=== PATIENT | male | born 1990 | race Caucasian/White ===

== ENCOUNTER 2016-10-23 11:00 | Emergency (ER) | payer OTHER ==
[~2016-10-23] VITALS: Ht 177.8 cm; Wt 72.6 kg
[~2016-10-23 11:00] MED LIST: NAPROSYN500 M1 PO
[2016-10-23 11:09] VITALS: BP 123/72
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
--- NOTE | 2016-10-23 12:42 | CT SCAN REPORT ---
EXAMINATION: CT HEAD WITHOUT CONTRAST CLINICAL INFORMATION: Trauma. Head injury. COMPARISON: CT brain 09/01/2012. TECHNIQUE: Contiguous axial imaging was performed from the skull base to vertex without intravenous administration of contrast. DLP: 600 mGy-cm FINDINGS: There is no evidence of acute intracranial hemorrhage or territorial infarction. No abnormal mass effect or midline shift is seen. [place] to white matter differentiation is well preserved. No extra-axial fluid collections are identified. The ventricles are normal in size. There is no abnormal attenuation within the brain parenchyma. The osseous structures and soft tissues are normal. The mastoid air cells and visualized portions of the paranasal sinuses are well aerated. IMPRESSION: No acute intracranial process seen.
== END 2016-10-23 12:47 ==
LOC: ERH 11:00
DX: S06.0X0A Concussion without loss of consciousness, initial encounter (principal); W22.8XXA Striking against or struck by other objects, initial encounter; Y93.01 Activity, walking, marching and hiking; Y92.59 Other trade areas as the place of occurrence of the external cause